=== PATIENT | female | born 1995 | race Caucasian/White ===

== ENCOUNTER → 2018-05-20 | Outpatient (CLI) | payer OTHER ==
[2018-05-23 21:06] LABS: HSV-1 DNA Positive (Negative); HSV-2 DNA Negative (Negative)
== END ==
LOC: LAB SHORT 13:44 → LAB 13:44
PROVIDERS: Registered Nurse Community Health
DX: A60.9 Anogenital herpesviral infection, unspecified (principal)
CPT/HCPCS: 87529

== ENCOUNTER 2018-12-27 00:12 | Emergency (ER) | payer OTHER ==
[~2018-12-27] VITALS: Ht 170.2 cm; Wt 68.0 kg
[2018-12-27] MEDS ORDERED: OMEPRAZOLE20 MG PO (01:52)
[2018-12-27] MEDS ORDERED: CYCL10 PO (01:53)
[2018-12-27] MEDS ORDERED: Augmentin 875-1 EACH PO (04:32)
== END 2018-12-27 04:57 | disposition home or self-care (01) ==
LOC: ER 00:12
DX: L03.011 Cellulitis of right finger (principal); Z79.899 Other long term (current) drug therapy; Z87.891 Personal history of nicotine dependence
CPT/HCPCS: 10061; 96372-59; 99283-25; J1885

== ENCOUNTER → 2019-05-06 | Outpatient (CLI) | payer OTHER ==
[~2019-05-06] MED LIST: Augmentin 875-1 EACH PO; CYCL10 PO; OMEPRAZOLE20 MG PO
== END | disposition home or self-care (01) ==
LOC: LAB SHORT 14:00 → LAB 14:00 → EDSTATUS 05-06 06:10 → LAB FUT 05-06 06:10
DX: L02.91 Cutaneous abscess, unspecified (principal)
CPT/HCPCS: 87070; 87075; 87077; 87186; 87205